=== PATIENT | male | born 1955 | race Caucasian/White ===

== ENCOUNTER 2020-12-28 09:39 | Observation (INO) | payer OTHER ==
[~2020-12-28] VITALS: Ht 177.8 cm; Wt 84.8 kg
[2020-12-28 11:16] LABS: ABSOLUTE NEUTROPHILS 3.4 thou/uL (1.4-8.2); BASOPHILS 0.7 % (0.0-2.0); EOSINOPHILS 1.1 % (0.0-3.0); HEMATOCRIT 36.6 % (42.0-52.0); HEMOGLOBIN 12.4 gm/dL (14.0-18.0); LYMPHOCYTES 34.2 % (24.0-44.0); MCH 30.4 pg (26.0-34.0); MCV 89.4 fL (80.0-100.0); MONOCYTES 4.7 % (1.0-8.0); PLATELET COUNT 198 thou/uL (150-400); POLYS 59.3 % (36.0-66.0); RDW 15.3 % (10.5-14.5); WBC 5.7 thou/uL (4.0-11.0)
[2020-12-28 11:21] LABS: CALCIUM 8.8 mg/dL (8.5-10.1); POTASSIUM 3.9 mmol/L (3.5-5.1)
[2020-12-28 11:23] VITALS: BP 170/92
[2020-12-28 11:26] LABS: APTT 26.9 Seconds (24.5-32.8); INR 1.02; PROTIME 11.1 Seconds (10.5-12.1)
[2020-12-28 11:27] LABS: ALBUMIN 3.3 g/dL (3.4-5.0); TOTAL BILIRUBIN 1.8 mg/dL (0.2-1.0); TOTAL PROTEIN 8.8 g/dL (6.4-8.2)
[2020-12-28] MEDS ORDERED: ELIQUIS5 MG PO (11:35)
[2020-12-28] MEDS ORDERED: TIKOSYN125 MCG PO (11:36)
[2020-12-28] MEDS ORDERED: TOPROL XL50 MG (11:37)
--- NOTE | 2020-12-28 13:46 | TEE ---
[facility] [address] [place] [address] TRANSESOPHAGEAL ECHOCARDIOGRAM Name: MEME GLOVER Dave Room #: REG [facility]#: [id number] Admission: 12/28/20 Attend Phys: Jarrod Campbell MD Discharge: Date of : 57 Report #: [id number] THIS REPORT FOR: cc: Dom Tillman MD, Prashanth S. MD Santiago, Patrick MD [facility] ~ APPROVED REPORT Study performed: 12/28/2020 12:14:53 EXAM: Comprehensive 2D, Doppler, and color-flow Echocardiogram Patient Location: EP lab Status: routine BSA: 2.03 HR: 34 bpm BP: 192/118 mmHg Rhythm: Atrial Fibrillation Other Information Study Quality: Good Indications Atrial Fibrillation Echo Enhancing Agent Indication: Rule out Shunt Agent(s) / Amount(s) Used: Agitated Saline 7 cc Procedure After obtaining informed consent, patient underwent transesophageal echo in the EP Lab. Type of Sedation : General Anesthesia Sedation was administered by Anesthesiologist. Transesophageal probe was inserted and advanced into esophagus without difficulty by Alex Veras MD. Echo enhancement indication: R/O Septal defect. Echo enhancement agent administered: Agitated Saline The PAO was performed without complications. Throughout the procedure, the blood pressure, pulse oximetry, cardiac rhythm, and rate were monitored. The patient tolerated the procedure without adverse effects. Recovery from conscious sedation was uneventful and vital signs were stable. [facility] [address] [place] [address] TRANSESOPHAGEAL ECHOCARDIOGRAM Name: MEME GLOVER Room #: REG [facility]#: [id number] Admission: 12/28/20 Attend Phys: [facility] Discharge: Date of : 57 Report #: [id number] Left Ventricle Left ventricle is at the upper limits of normal. There is normal left ventricular wall thickness. Left ventricular systolic function is mildly decreased. LVEF is 45%. Right Ventricle The right ventricle is normal size. The right ventricular systolic function is normal. Atria Left atrium is at the upper limits of normal. Interatrial septum is intact without evidence of ASD or PFO. The right atrium size is normal. Aortic Valve The aortic valve is normal in structure. Trace aortic regurgitation. There is no aortic valvular stenosis. Mitral Valve The mitral valve is normal in structure. Trace mitral regurgitation. No evidence of mitral valve stenosis. Tricuspid Valve The tricuspid valve is normal in structure. There is no tricuspid valve regurgitation noted. Pulmonic Valve The pulmonary valve is normal in structure. There is no pulmonic valvular regurgitation. Great Vessels The aortic root is normal in size. Pericardium There is no pericardial effusion. <Conclusion> Consent obtained After appropriate sedation by the anesthesiologist esophageal probe was advanced without difficulty Left atrial appendage moderate size, no obvious clot detected Normal atrial size Normal left ventricle size/wall thickness Mild global hypokinesis ejection fraction around 45% Normal right ventricular size/function [facility] [address] [place] [address] TRANSESOPHAGEAL ECHOCARDIOGRAM Name: MEME GLOVER Room #: [facility]#: [id number] Admission: 12/28/20 Attend Phys: Jarrod Campbell Discharge: Date of : 57 Report #: [id number] Trileaflet aortic valve with adequate cusp excursion, trace AI Trace mitral valve insufficiency No evidence of tricuspid valve insufficiency No evidence of ASD/VSD by color flow bubble study No pericardial effusion <ELECTRONICALLY SIGNED> By: Alex Veras MD, FACC 12/28/205 44 44 Alex Veras MD, FACC /INF
--- NOTE | 2020-12-28 14:15 | EKG ---
[address] [address] ELECTROCARDIOGRAM REPORT Name: MEME GLOVER Room #: [facility]#: [id number] Admission: 12/28/20 Attend Phys: Jarrod Campbell MD Discharge: Date of : 57 Report #: [id number] [facility] Test Date: 2020-12-28 Test Time: 12:01:00 Pat Name: MEME STALLWORTHATT Department: Room: Gender: Brand Advocate: DONAL : 1955 Requested By: Jarrod Campbell Order Number: [id number] MD: Alex Veras Measurements Intervals [place] Rate: 56 P: -12 IN: 194 QRS: -20 QRSD: 162 T: 25 QT: 524 QTc: 506 Interpretive Statements Sinus rhythm Right bundle branch block No previous ECG available for comparison Electronically Signed On 12-28-2020 14:15:26 CDT by Alex Veras [email or web address] <ELECTRONICALLY SIGNED> By: Alex Veras MD, [facility] 12/28/20 1415 1201 1201 Alex Veras MD, FACC /EPI
[2020-12-28 17:54] VITALS: BP 154/86
--- NOTE | 2020-12-28 18:42 | NUR ---
PT TO THE UNIT POST ABLATION - GROIN SITE STABLE - C/D/I OTTO CLOSURE DEVICE PRESENT - ASSESSMENT CHARTED - PT WITH SMALL AMOUNT OF BLODDY EMEISIS POST INTUBATION - PT STATES HE FEELS OKAY NOW AFTER HAVING SOME WATER. REFUSED 7 UP OR FOOD. SR ON THE MONITOR. PT ORIENTED TO ROOM AND BEDSPACE. NO CO'S AT THE PRESENT TIME.
[2020-12-28 20:04] VITALS: BP 142/84
--- NOTE | 2020-12-28 20:07 | EKG ---
[place] [address] [facility] [address] [place] [address] ELECTROCARDIOGRAM REPORT Name: MEME GLOVER Dave Room #: 207-P [facility]#: [id number] Admission: 12/28/20 Attend Phys: Jarrod Campbell MD Discharge: Date of : 57 Report #: [id number] [facility] Test Date: 2020-12-28 Test Time: 15:30:27 Pat Name: MEME GLOVER Department: Room: [facility] Gender: M Grounds/Maintenance Specialist: JUWAN : 1955 Requested By: Simona Heredia Order Number: [id number] MD: Keegan Pike Measurements Intervals [place] Rate: 66 P: [place]: QRS: 2 QRSD: 172 T: 28 QT: 532 QTc: 558 Interpretive Statements Sinus bradycardia with first-degree AV block Occasional premature ventricular complex Right bundle branch block Compared to ECG 12/28/2020 12:01:00 Premature ventricular complexes are now present Electronically Signed On 12-28-2020 20:07:40 CDT by Keegan Pike [email or web address] <ELECTRONICALLY SIGNED> By: Keegan Pike MD, [facility] 12/28/202006 29 29 Keegan Pike MD, [facility] /EPI
--- NOTE | 2020-12-28 20:08 | EKG ---
[address] [place] [address] ELECTROCARDIOGRAM REPORT Name: MEME GLOVER Dave Room #: 207-[facility]#: [id number] Admission: 12/28/20 Attend Phys: Jarrod Campbell MD Discharge: Date of : 57 Report #: [id number] [facility] Test Date: 2020-12-28 Test Time: 15:32:02 Pat Name: MEME GLOVER Department: Room: [facility] Gender: M Warehouse Clerk: JUWAN : 1955 Requested By: Simona Heredia Order Number: [id number] MD: Keegan Pike Measurements Intervals [place] Rate: 67 P: 21 AK: 191 QRS: 37 QRSD: 176 T: 37 QT: 531 QTc: 561 Interpretive Statements Sinus rhythm with first-degree AV block Multiple ventricular premature complexes Right bundle branch block Compared to ECG 12/28/2020 15:30:27 No significant change was found Electronically Signed On 12-28-2020 20:08:08 CDT by Keegan Pike [email or web address] <ELECTRONICALLY SIGNED> By: Keegan Pike MD, [facility] 12/28/202007 31 31 Keegan Pike MD, [facility] /EPI
[2020-12-29 00:33] VITALS: BP 120/84
[2020-12-29 04:23] VITALS: BP 123/83
[2020-12-29 07:30] VITALS: BP 146/83
[2020-12-29 11:19] VITALS: BP 146/83
--- NOTE | 2020-12-29 11:58 | NUR ---
RECEIVED THE PATIENT ON BED, CONSCIOUS AND ORIENTED.ON ROOM AIR BREATHING SPONTANEOUSLY.NOT IN PAIN OR DISTRESS.WITH RIGHT GROIN SITE WITH DRESSING C/D/I.DISCHARGE PACKET GIVEN TO THE PATIENT AND EVERYTHING WAS EXPLAINED.DISCHARGED PATIENT FROM THE HOSPITAL ON STABLE CONDITION.
--- NOTE | 2021-01-08 15:45 | P ---
[facility] [address] [address] PROCEDURE REPORT Name: MEME GLOVER Dave Room #: 207-P [facility] Georgi Vera#: [id number] Admission: 12/28/20 Attend Phys: Jarrod Campbell MD Discharge: 12/29/20 Date of : 57 Report #: [id number] THIS REPORT FOR: cc: Dom Tillman MD, Prashanth S. MD Couchonnal, Luis F. MD ~ DATE OF SERVICE: 12/28/2020 DATE OF SERVICE: 12/28/2020 PROCEDURES PERFORMED: 1. Atrial fibrillation ablation - CPT code 69654. 2. 3D mapping - CPT code 67587. 3. Intracardiac echo - CPT code 29661. HISTORY: The patient is a 65-year-old with history of atrial fibrillation, here for ablation. ANESTHESIA: The patient underwent general anesthesia with no anesthesia related complications. DESCRIPTION OF PROCEDURE: The patient underwent informed consent. We discussed the details of the procedure, which include but not limited to bleeding, infection, vascular damage, stroke, MD, cardiac perforation. He understood these risks and is willing to proceed. The patient was brought to the EP laboratory in a fasting and sedated state, prepped and draped in a standard fashion. I obtained access to the right femoral vein x 3, placing an 8, 9 and 7-Luxembourgish short sheath. Under fluoroscopy, a decapolar catheter was placed in the coronary sinus and ICE catheter was placed in the right atrium. At baseline, the patient was in sinus rhythm. Using intracardiac ultrasound, I verified there were 2 right and 2 left pulmonary veins. The patient was then systemically heparinized. Transseptal was performed using SL1 sheath and a Dundee needle, which was straightforward and then I exchanged for the CryoCath sheath and placed a Lasso catheter in the left atrium. Using a Lasso catheter, a 3D voltage map and geometry was created of the left atrium. Next, the pulmonary veins were then isolated using cryoballoon. The left superior pulmonary vein underwent a 4-minute freeze and isolated at 100 seconds. I performed an additional freeze of 3 minutes duration. The left inferior pulmonary vein underwent a 4-minute freeze and the vein isolated at 80 seconds. The right superior pulmonary vein underwent a 3 minute followed by 100 second freeze and then an additional 2 minute freeze and isolated during the last freeze of 20 seconds. The right inferior pulmonary vein underwent a 4-minute freeze and isolated at 37 seconds. As such, all veins were re-interrogated and found to be isolated and there were no other inducible arrhythmias. Therefore, the procedure was concluded. Using intracardiac ultrasound, there was no evidence of pericardial effusion. The patient received systemic protamine and [address] [address] PROCEDURE REPORT Name: MEME GLOVER Room #: 207-P [facility] Vera#: [id number] Admission: 12/28/20 Attend Phys: Jarrod Campbell MD Discharge: 12/29/20 Date of : 57 Report #: [id number] once ACT was within acceptable range, catheters and sheaths were pulled and hemostasis obtained. The patient awoke neurologically and hemodynamically intact. No complications. No significant bleeding. CONCLUSION: Successful AFib ablation with isolation of the pulmonary veins. <ELECTRONICALLY SIGNED> By: Jarrod Campbell MD 01/08/21 1545 1127 [id number] Jarrod Campbell MD /nt
== END 2020-12-29 11:42 | disposition home or self-care (01) ==
LOC: CATH 09:39 → 2N 17:26
PROVIDERS: ADMIT Internal Medicine Cardiovascular Disease; ATTEND Internal Medicine Cardiovascular Disease
DX: I48.91 Unspecified atrial fibrillation (principal); I42.8 Other cardiomyopathies; I12.9 Hypertensive chronic kidney disease with stage 1 through stage 4 chronic kidney disease, or unspecified chronic kidney disease; N18.9 Chronic kidney disease, unspecified; E66.9 Obesity, unspecified; I45.10 Unspecified right bundle-branch block; Z79.899 Other long term (current) drug therapy; Z68.28 Body mass index [BMI] 28.0-28.9, adult
CPT/HCPCS: 62110; 62900; 65020; 70005